=== PATIENT | female | born 1980 | race Caucasian/White ===

== ENCOUNTER 2016-09-20 12:46 | Outpatient (CLI) | payer MEDICAID ==
[~2016-09-20] VITALS: Ht 149.9 cm; Wt 84.4 kg
[~2016-09-20 12:46] MED LIST: HYDR-3498 PO; IBUP-1542 PO
[2016-09-20 13:43] VITALS: Ht 149.9 cm; Wt 84.4 kg
[2016-09-20] MEDS ORDERED: PRENAT PO (13:43)
[2016-09-20 13:44] VITALS: BP 115/53; PULSE 73
--- NOTE | 2016-09-20 14:06 | RADRPT ---
PROCEDURE: OB ultrasound for biophysical profile CLINICAL INDICATION: Gestational diabetes TECHNIQUE: Multiple sonographic images of the pelvis were obtained. Transabdominal view of the gr avid uterus are available for review. The images were reviewed on a PACS workstation. COMPARISON: None FINDINGS: breathing movement = 2/2 tone = 2/2 motion = 2/2 DAINA = 2/2 DAINA = 11.2 cm Single live intrauterine with cardiac activity. heart rate equals 136 beats p er minute. Presentation is cephalic. The placenta is fundal. IMPRESSION: 1. Single viable intrauterine gestation. 2. Biophysical profile = 8/8. 3. DAINA = 11.2 cm. RPTAT: KK .Kang Parry MD, MD Date Time Electronically viewed and signed by .Kang Parry MD, MD on 09/20/2016 14:05 .B/
--- NOTE | 2016-09-20 15:35 | CONS ---
Date/Time of Note Date/Time of Note DATE: 09/20/16 TIME: 15:27 Consultation Date/Type/Reason Admit Date/Time September 20, 2016 OB triage consult Reason for Consultation This patient is a 36 years old 4 para 3 0 with estimated date of confinement of October 16, 2016 which makes her 36 weeks and 2 days today. During this she developed a gestational diabetes mellitus, although it is diet-controlled she was referred here for monitoring. In reviewing her past history all 3 of her deliveries were vaginal and spontaneous On examination she is a well-developed well-nourished lady near term. Her general vital signs are within normal limits, with blood pressure over 115/ 53. Pulse rate of 73. Respiration 18. And temperature of 98.5 She is not having regular contractions, only occasional contractions. heart tone appears to be normal with fairly good variability and occasional acceleration no decelerations. Due to irregular contractions that she had a pelvic exam . The cervix was closed about 20% -2 station with intact membranes. Laboratory Tests Test 09/20/16 13:50 Bedside Glucose 63mg/dL Constitutional: No chills, No diaphoresis, No disoriented, No febrile, No improved, No no complaints, No other, No poor po, No requiring IVF, No requiring O2 Eyes: No discharge, No no complaints, No other, No pain, No redness, No visual change ENT: No bleeding, No congestion, No discharge, No dysphagia, No no complaints, No other, No pain, No sore throat Respiratory: No cough, No no complaints, No other, No pain, No pleuritic pain, No shortness of breath, No sputum, No wheezing Cardiovascular: No chest pain, No edema, No lightheadedness, No no complaints, No orthopenea, No other, No palpitations, No paroxysmal nocturnal dyspnea Gastrointestinal: No blood, No constipation, No decreased appetite, No diarrhea , No flatus, No nausea, No no complaints, No other, No pain, No passing stool, No vomiting Genitourinary: other (As I mentioned on pelvic exam the cervix was closed known with intact membranes), No bleeding, No discharge, No dysuria, No flank pain, No hematuria, No no complaints Musculoskeletal: No back pain, No bone/joint pain, No neck pain, No no complaints, No other, No restricted range of motion, No swelling Skin: No bruising, No erythema, No laceration, No no complaints, No other, No pruritis, No rash, No skin lesions Neurologic: other (Knee-jerk reflex were normal) Endocrine: other, No dry skin, No no complaints, No polydypsia, No polyuria, No temp intolerance Psychological: No anxiety, No confusion, No depression, No nl mood/affect, No no complaints, No other, No suicidal Additional Comments We did an ultrasound study and the result was a single live intrauterine with cardiac activity 136 bpm baby presentation was cephalic on placenta was fundal. The biophysical profile was reported 10/04 and amniotic fluid index was 11.2 cm Disposition; with these normal finding patient was sent home to be followed in her clinic and she is advised to return next week for repeat evaluation and monitoring due to her gestational diabetes Social History Smoking Status: Never smoker Exam/Review of Systems Vital Signs Vitals Vital Signs Date Time Temp Pulse Resp B/P Pulse Ox O2 Delivery O2 Flow Rate FiO2 09/20/16 13:44 98.5 73 115/53 Results Results 24 hrs Laboratory Tests Test 09/20/16 13:50 Bedside Glucose 63 L SIMEON GAGE MD Sep 20, 2016 15:35
== END 2016-09-20 15:19 | disposition home or self-care (01) ==
LOC: OBT 12:46 → L-D 12:51 → OBT 15:19
PROVIDERS: ATTEND Obstetrics & Gynecology
DX: O24.419 Gestational diabetes mellitus in pregnancy, unspecified control (principal); Z3A.36 36 weeks gestation of pregnancy
CPT/HCPCS: 76818; 82962; Z7500; G0463

== ENCOUNTER 2016-10-11 07:08 | Inpatient (IN) | payer MEDICAID ==
[~2016-10-11] VITALS: Ht 157.5 cm; Wt 85.2 kg
[~2016-10-11 07:08] MED LIST changes: -HYDR-3498 PO; -IBUP-1542 PO; +PRENAT PO
[2016-10-11 07:21] VITALS: Ht 157.5 cm; Wt 85.2 kg
[2016-10-11 07:25] VITALS: BP 135/75; PULSE 70; RESP 18
[2016-10-11] MEDS ORDERED: CEFAZOLIN 2 GM/50 ML (PMX) 50 ML IVPB ONE (07:42)
[2016-10-11] MEDS: LACTATED RINGER'S 1,000 ML IV SCH ×2 (07:59→12:49)
[2016-10-11] MEDS ORDERED: CARBOPROST 250 MCG INJ IM PRN ×2 (08:00→22:00)
[2016-10-11] MEDS ORDERED: MISOPROSTOL 200 MCG TAB PR PRN ×2 (08:00→22:00)
[2016-10-11] MEDS ORDERED: CEFAZOLIN 2 GM/50 ML (PMX) 50 ML IV SCH (08:00)
[2016-10-11] MEDS ORDERED: OXYTOCIN 30 UNITS/LR 500 ML IV PRN ×2 (08:00→22:00)
[2016-10-11] MEDS ORDERED: METHYLERGONOVINE 0.2 MG INJ IM PRN ×2 (08:00→22:00)
[2016-10-11] MEDS ORDERED: LACTATED RINGER'S 1,000 ML IV ONE (08:17)
[2016-10-11 08:18] LABS: BASOPHILS % 0.2 % (0.0-2.0); EOSINOPHILS # 0.1 10^3/ul (0.0-0.5); EOSINOPHILS % 0.7 % (0.0-7.0); HEMATOCRIT 35.1 % (37.0-47.0); HEMOGLOBIN 11.8 g/dl (12.0-16.0); LYMPHOCYTES # 3.1 10^3/ul (0.8-2.9); LYMPHOCYTES % 28.2 % (15.0-51.0); MEAN CORPUSCULAR HEMOGLOBIN 30.3 pg (29.0-33.0); MEAN CORPUSCULAR HGB CONC 33.6 g/dl (32.0-37.0); MEAN PLATELET VOLUME 11.3 fl (7.4-10.4); MONOCYTE # 0.6 10^3/ul (0.3-0.9); MONOCYTES % 5.8 % (0.0-11.0); NEUTROPHILS % 64.4 % (39.0-77.0); PLATELET COUNT 244 10^3/UL (140-415); RED CELL DISTRIBUTION WIDTH 13.7 % (11.5-14.5); WHITE BLOOD COUNT 11.1 10^3/ul (4.8-10.8)
[2016-10-11] MEDS ORDERED: FAMOTIDINE 20 MG INJ IV ONE (08:30)
[2016-10-11] MEDS ORDERED: CITRIC ACID/NA CITRATE 30 ML CUP PO ONE (08:30)
[2016-10-11] MEDS ORDERED: METOCLOPRAMIDE 10 MG INJ IV ONE (08:30)
[2016-10-11 08:40] LABS: INR 0.88; PARTIAL THROMBOPLASTIN TIME 25.7 Sec (25.0-35.0); PROTIME 11.9 Sec (12.2-14.2); PT RATIO 0.9
[2016-10-11] MEDS ORDERED: FOLI0.4T2 PO (08:46)
[2016-10-11] MEDS ORDERED: FER325 PO (08:47)
[2016-10-11] MEDS ORDERED: FENTAnyl 50 MCG/ML VIAL ONE (14:58)
[2016-10-11] MEDS ORDERED: OXYTOCIN 30 UNITS/LR 500 ML IV ONE ×2 (14:58→15:31)
[2016-10-11] MEDS ORDERED: morphine SULFATE/PF (10 MG/10 ML) INJ ONE (14:59)
[2016-10-11] MEDS ORDERED: KETOROLAC 30 MG INJ IV PRN (15:30)
[2016-10-11] MEDS ORDERED: PROCHLORPERAZINE 10 MG INJ IV PRN (15:30)
[2016-10-11] MEDS ORDERED: ONDANSETRON 4 MG INJ IV PRN ×2 (15:30→17:30)
[2016-10-11] MEDS ORDERED: MEPERIDINE 25 MG INJ IV PRN (15:30)
[2016-10-11] MEDS ORDERED: FENTAnyl 50 MCG/ML VIAL IV PRN (15:30)
[2016-10-11] MEDS ORDERED: HYDROmorphONE (0.2 MG/ML) 10ML SYG IV PRN (15:30)
[2016-10-11] MEDS ORDERED: DIPHENHYDRAMINE 50 MG INJ IV PRN ×2 (15:30→17:30)
[2016-10-11] MEDS ORDERED: ONDANSETRON 4 MG INJ ONE (15:32)
--- NOTE | 2016-10-11 16:00 | HP ---
Date/Time of Note Date/Time of Note DATE: 10/11/16 TIME: 15:59 OB - History Hx of Present Free Text/Dictation @39+wks GA for repeat c/section +Bilateral tubal ligation : 4 Para: 3 Care: Good Care Ultrasounds: Normal mid trimester US Obstetrical Complications: None Medical Complications: None Past Family/Social History * Past Medical, Surgical, Family and Obstetric Histories reviewed from chart. OB Admission Exam Vital Signs Vital Signs Vital Signs Date Time Temp Pulse Resp B/P Pulse Ox O2 Delivery O2 Flow Rate FiO2 10/11/16 07:25 98.4 70 18 135/75 98 Room Air Physical Exam Abdomen: WNL Extremities: Normal Cervical Dilatation: None Effacement: 0% Station: Ballotable Heart Rate: 140's Accelerations: Accelerations Present Decelerations: No Decelerations Varibility: Moderate Contractions on Admission: None Last 72 hours Lab Results CBC & BMP 10/11/16 07:55 OB Assessment/Plan Reason for admission: section Plan: Section CANDIDO BARBER M.D. Oct 11, 2016 16:00
--- NOTE | 2016-10-11 16:03 | OPR ---
Operative Report Planned Procedure Free Text/Dictation 39+wks for scheduled repeat c/section Procedure date Oct 11, 2016 Procedure(s) Repeat c/section +Bilateral tubal ligation Performed by: CANDIDO BARBER M.D. Assisting provider: VANESSA SHORT MD Anesthesiologist: RIGOBERTO LEOS MD Pre-procedure diagnosis 39+wks for scheduled repeat c/section Anesthesia Type: spinal Procedure Description Under satisfactory [] anesthesia, the patient was prepped and draped and placed in a supine position, tilted to the left. Pfannenstiel incision was made, carried through the subcutaneous tissue. Bleeders brought under control with electrocautery. Fascia incised to the length of the incision. Rectus muscles from the fascia, divided midline. Peritoneum exposed, entered through a transverse incision. Exploration of abdomen revealed gravid uterus. Bladder flap was developed. Transverse incision was made in the lower segment of the uterus. Amniotic sac ruptured. [] amniotic fluid noted. [] Nasal oropharyngeal suction was performed. The baby was handed to the team for immediate attention. The placenta was delivered manually intact. Uterine cavity was cleaned with wet sponge and drainage established. Uterus closed in 2 layers using [] in continuous fashion. Peritoneal cavity irrigated with warm saline. Sponge, needle and instrument count reported to be correct. The right tube was cut and tied in the middle using a toy method and same done on the left side.Abdominal peritoneum closed with [] continuously. Rectus muscle approximated with []. Fascia closed with [], and skin closed with cooper. Estimated blood loss [600]mL. Urine bag contained []mL of urine Post-Procedure Findings: Live Baby [], Apgars [] and [], weight [], position [], [] presentation []cord. Specimen removed: Yes Complications: None Pt Condition post procedure: stable Disposition: PACU Physician Certification I, the undersigned physician, hereby certify that I have discussed the procedure described in this consent form with this patient (or the patient's legal appeals representative), including: * The risk and benefits of the procedure; * Any adverse reactions that may reasonably be expected to occur; * Any alternative efficacious methods of treatment which may be medically viable ; * The potential problems that may occur during recuperation; * Potential for blood transfusion and associated risks/benefits; and * Any research or economic interest I may have regarding this treatment. I further certify that the patient/legally responsible person was encouraged to ask question and that all questions were answered. CANDIDO BARBER M.D. Oct 11, 2016 16:03
[2016-10-11] MEDS: OXYTOCIN 30 UNITS/LR 500 ML IV SCH ×2 (16:36→19:34)
[2016-10-11] MEDS ORDERED: HYDROmorphONE 1 MG/ML SYG IV PRN ×2 (17:30)
[2016-10-11] MEDS ORDERED: NALOXONE (0.4 MG/ML) INJ IV PRN (17:30)
[2016-10-11] MEDS ORDERED: ZOLPIDEM 5 MG TAB PO PRN (17:30)
[2016-10-11 20:30] VITALS: BP 117/66; PULSE 67; RESP 20
[2016-10-11 21:00] VITALS: BP 128/67; PULSE 60; RESP 20
[2016-10-11 22:00] VITALS: BP 124/67; PULSE 63; RESP 20
[2016-10-11] MEDS ORDERED: LANOLIN 7 GM TUBE TOP PRN (22:00)
[2016-10-11 23:00] VITALS: BP 120/66; PULSE 62; RESP 20
[2016-10-12] VITALS: BP 114/59; PULSE 62; RESP 20
[2016-10-12] MEDS: LACTATED RINGER'S 1,000 ML IV SCH ×4 (00:09→21:35)
[2016-10-12 04:00] VITALS: BP 121/59; PULSE 69; RESP 18
[2016-10-12 08:00] VITALS: BP 107/57; PULSE 67; RESP 18
[2016-10-12] MEDS: KETOROLAC 30 MG INJ IV PRN ×2 (09:03→14:55)
[2016-10-12 10:11] LABS: BASOPHILS % 0.3 % (0.0-2.0); EOSINOPHILS % 0.4 % (0.0-7.0); HEMATOCRIT 33.2 % (37.0-47.0); HEMOGLOBIN 10.9 g/dl (12.0-16.0); LYMPHOCYTES # 2.4 10^3/ul (0.8-2.9); LYMPHOCYTES % 21.4 % (15.0-51.0); MEAN CORPUSCULAR HEMOGLOBIN 30.2 pg (29.0-33.0); MEAN CORPUSCULAR HGB CONC 32.8 g/dl (32.0-37.0); MEAN PLATELET VOLUME 11.3 fl (7.4-10.4); MONOCYTE # 0.5 10^3/ul (0.3-0.9); MONOCYTES % 4.6 % (0.0-11.0); NEUTROPHILS % 72.9 % (39.0-77.0); PLATELET COUNT 232 10^3/UL (140-415); RED BLOOD COUNT 3.61 10^6/ul (4.20-5.40); RED CELL DISTRIBUTION WIDTH 13.6 % (11.5-14.5)
[2016-10-12 15:51] VITALS: BP 126/58; PULSE 72; RESP 19
[2016-10-12] MEDS: OXYCODONE/ACETAMINOPHEN (5/325) TAB PO PRN ×2 (16:32→22:31)
[2016-10-12] MEDS: IBUPROFEN 600 MG TAB PO SCH ×2 (17:54→23:49)
[2016-10-12 20:00] VITALS: BP 121/58; PULSE 55; RESP 20
--- NOTE | 2016-10-13 03:51 | QN ---
Documentation Comment Late Entry Note: 10/12/16 POD#1 is stable afebrile No Vb +BM +voids Vs Stable Gen NAD Abd soft NT ND Incision ntact Genitalia No blood at perinium --->discharge plan tomorrow -->ambulation CANDIDO BARBER M.D. Oct 13, 2016 03:51
--- NOTE | 2016-10-13 03:52 | DS ---
Date/Time of Note Date/Time of Note DATE: 10/13/16 TIME: 03:51 Discharge Summary Admission/Discharge Info Admit Date/Time Oct 11, 2016 at 07:08 Discharge Date/Time Sep Discharge Diagnosis Patient Condition: Good Procedures Repeat c/section Hospital Course uneventful Home Meds Reported Medications Ferrous Sulfate* (Ferrous Sulfate*) 325 Mg Tabec, 325 MG PO DAILY, TAB 10/11/16 Folic Acid* (Folic Acid*) 0.4 Mg Tablet, 0.4 MG PO DAILY, TAB 10/11/16 Multivit/Min/Fol Ac/Iron/Pren* ( S*) 1 Tab Tab, 1 TAB PO DAILY, TAB 09/20/16 Primary Care Provider Not On Staff Doctor Pending Labs Laboratory Tests Test 10/12/16 09:08 White Blood Count 11.010^3/ul (4.8-10.8) Red Blood Count 3.6110^6/ul (4.20-5.40) Hemoglobin 10.9g/dl (12.0-16.0) Hematocrit 33.2% (37.0-47.0) Mean Corpuscular Volume 92.0fl (82.0-101.0) Mean Corpuscular Hemoglobin 30.2pg (29.0-33.0) Mean Corpuscular Hemoglobin Concent 32.8g/dl (32.0-37.0) Red Cell Distribution Width 13.6% (11.5-14.5) Platelet Count 99168^3/UL (140-415) Mean Platelet Volume 11.3fl (7.4-10.4) Neutrophils % 72.9% (39.0-77.0) Lymphocytes % 21.4% (15.0-51.0) Monocytes % 4.6% (0.0-11.0) Eosinophils % 0.4% (0.0-7.0) Basophils % 0.3% (0.0-2.0) Nucleated Red Blood Cells % 0.0/100WBC (0.0-0.0) Neutrophils # (Manual) 8.110^3/ul (1.7-7.5) Lymphocytes # 2.410^3/ul (0.8-2.9) Monocytes # 0.510^3/ul (0.3-0.9) Eosinophils # 0.010^3/ul (0.0-0.5) Basophils # 0.010^3/ul (0.0-0.1) Nucleated Red Blood Cells # 0.010^3/ul (0.0-0.0) CANDIDO BARBER M.D. Oct 13, 2016 03:52
[2016-10-13 04:00] VITALS: BP 111/56; PULSE 58; RESP 18
[2016-10-13] MEDS: LACTATED RINGER'S 1,000 ML IV SCH ×2 (05:14→13:35)
[2016-10-13] MEDS: IBUPROFEN 600 MG TAB PO SCH ×3 (06:15→17:38)
[2016-10-13 07:15] VITALS: BP 120/59; PULSE 66; RESP 19
[2016-10-13 15:41] VITALS: BP 111/59; PULSE 65; RESP 19
[2016-10-13 20:00] VITALS: BP 117/56; PULSE 70; RESP 20
[2016-10-14] MEDS: IBUPROFEN 600 MG TAB PO SCH ×3 (00:31→12:08)
[2016-10-14 04:00] VITALS: BP 112/52; RESP 18
[2016-10-14 07:20] VITALS: BP 125/78; PULSE 61; RESP 19
[2016-10-14] MEDS ORDERED: DIPHTH/TET/ACEL PERTUSS (ADULT) 0.5 ML VIAL IM* ONE (09:00)
== END 2016-10-14 16:07 | disposition home or self-care (01) | DRG 766 ==
LOC: L-D 07:08 → PP1 20:32
PROVIDERS: ADMIT Obstetrics & Gynecology; ATTEND Obstetrics & Gynecology
PROC: 0UL70ZZ Occlusion of Bilateral Fallopian Tubes, Open Approach (ICD-10-PCS; 2016-10-11)
PROC: 10D00Z1 Extraction of Products of Conception, Low, Open Approach (ICD-10-PCS; principal; 2016-10-11 09:00)
DX: O34.211 Maternal care for low transverse scar from previous cesarean delivery (principal); Z30.2 Encounter for sterilization; Z37.0 Single live birth; Z3A.39 39 weeks gestation of pregnancy
CPT/HCPCS: 82947; 85025; 85610; 85730; 86592; 86850; 86900; 86901; 88302; 90715; 94760; 99464; J0690; J1170; J1885; J2274; J2405; J2590; J2765; J3010; J7120